=== PATIENT | female | born 1940 | race Caucasian/White ===

== ENCOUNTER 2025-04-03 09:46 | Emergency (ER) | payer MEDICARE, MEDICAID ==
[~2025-04-03] VITALS: Ht 152.4 cm; Wt 86.0 kg
[~2025-04-03 09:46] MED LIST: APIX5TAB3 PO; ATOR20TA PO; FURO-150 PO; METF-900 PO; METO-384 PO; OXYC-658 PO; SPIR25TA5 PO
--- NOTE | 2025-04-03 10:06 | ELECTROCARDIOGRAPH REPORT ---
[facility] Test Date: 2025-04-03 Test Time: 10:04:15 Pat Name: MARIUM FARRELL Department: [facility] Patient ID: [facility]-[id number] Room: Gender: F Customer Experience Consultant: WILLIAM : 1940 Requested By: CALDERON RYAN Order Number: [id number] Reading MD: Dr. Ramon Mcpherson Measurements Intervals [place] Rate: 98 P: 0 [place]: 0 QRS: 77 QRSD: 90 T: -33 QT: 364 QTc: 465 Interpretive Statements Atrial fibrillation Low voltage, precordial leads Borderline repolarization abnormality Electronically Signed On 04-03-2025 20:30:[address] Ramon Mcpherson Please click the below link to view image of tracing.
--- NOTE | 2025-04-03 10:23 | RADIOLOGY REPORT ---
EXAM: DI CHEST,SINGLE VIEW Indication: Hypotension Technique: Single frontal view of the chest was obtained Comparison: DI CHEST,SINGLE VIEW on DOS: 03/25/25, DI CHEST,SINGLE VIEW on DOS: 03/25/25 FINDINGS: Lines and Tubes: None Lungs: Right basilar opacity and trace bilateral pleural effusions. No pneumothorax. Cardiomediastinal contours: Unremarkable. Atherosclerotic vascular calcifications of the thoracic aorta are noted. Bones: No acute osseous abnormality. IMPRESSION: Right basilar opacity and trace bilateral pleural effusions.
[2025-04-03 10:32] LABS: CREATININE 1.28 MG/DL (0.40-0.90); TOTAL CARBON DIOXIDE 29.4 MMOL/L (24-32); eCRCL 24 ML/MIN; eGFR 40 ML/MIN
[2025-04-03 10:36] LABS: APTT 25 SECONDS (22-32); INR 1.1 INR
[2025-04-03 10:37] LABS: MEAN PLATELET VOLUME 7.0 FL (7.4-10.4); RED CELL DISTRIBUTION WIDTH 15.7 % (11.5-14.5)
[2025-04-03 11:30] LABS: LEUKOCYTE ESTERASE ,URINE SMALL (Neg); NITRITES, URINE NEGATIVE (Neg); OCCULT BLOOD,URINE LARGE (Neg)
[2025-04-03 11:50] LABS: UA COLLECTION TYPE CLN CATCH MIDSTREAM
[2025-04-03 11:51] LABS: SQUAMOUS EPITHELIAL CELL,UR FEW /LPF (FEW)
[2025-04-03 11:52] LABS: YEAST MODERATE /HPF (NEGATIVE)
--- NOTE | 2025-04-03 12:11 | Physician Documentation ---
History of Present Illness ~ Chief Complaint: Bloody Stools Stated Complaint: BLACK STOOLS Time Seen by MD: 09:52 OK to notify your PCP?: Yes Mode of Arrival: EMS HPI 85-year-old female patient with a history of BRADLY, anemia, gout, diabetes, history of duodenitis and the patient is DNR with selective care was brought to the emergency room from [place] for subacute for "black tarry stool" for two days. According to the patient she does not notice any thing and she notes aware of that. Medication Reconciliation Allergies: Coded Allergies: No Known Allergies (Unverified , 03/25/25) Scheduled Apixaban (Eliquis), 1 TAB PO Q12H, (Reported) Atorvastatin Calcium* (Lipitor*), 1 TAB PO DAILY, (Reported) Furosemide* (Lasix*), 2 TAB PO BID, (Reported) Metformin Hcl* (Metformin ER*), 2 TAB PO Q12H, (Reported) Metoprolol Succinate (Metoprolol Succinate), 1 TAB PO DAILY, (Reported) Spironolactone (Spironolactone), 1 TAB PO DAILY, (Reported) Scheduled PRN Oxycodone Hcl IR* (Oxycodone IR*), 1 TAB PO Q6H PRN for moderate to severe pain, (Reported) Past Medical History Patient History: Patient reports no known family medical history. Alcohol Use: None Drug Use: none Lives with: Alone Lives In: Home Occupation: retired Review of Systems ROS As stated above in the HPI, otherwise all systems are reviewed and negative. Physical Exam Vital Signs: Source: Oral, Heart Rate: 97, Respiratory Rate: 15, BP: 144/76, Pulse Oximetry: 98, Weight: 86.000 Oxygen Flow Rate: 2.0 Physical Exam Reviewed vital signs and they are well within normal range. Const: Patient is not in acute cardiopulmonary distress Head: Atraumatic Eyes: Normal Conjunctiva ENT: Normal External Ears, Nose and Mouth. Moist mucous membranes Neck: Full range of motion. No meningismus Resp: Clear to auscultation bilaterally. Normal work of breathing Cardio: Rhythm is AFib, no murmurs. Skin well perfused, heart rate 96 Abd: Soft, non-tender, non-distended. Normal bowel sounds. No rebound or guarding Rectal examination does not reveal any black tarry stool and is occult negative. Skin: No petechiae or rashes. Warm and dry Back: No midline or flank tenderness Ext: No cyanosis, or edema Neuro: Awake and alert Psych: Normal Mood and Affect Progress Results/Orders Results/Orders Orders - CALDERON RYAN MD Chest,Single View (04/03/25 09:50) Nothing By Mouth (04/03/25 Lunch) Monitor (04/03/25 09:52) Saline Lock (04/03/25 09:52) Electrocardiogram (04/03/25 09:52) Occult Bld Stool (04/03/25 11:10) Cult Urine + [address] (04/03/25 11:52) Completed Orders - CALDERON RYAN MD Cbc/Diff (04/03/25 09:52) BMP (04/03/25 09:52) PTT (04/03/25 09:52) Pt Inr (04/03/25 09:52) Type And Screen (04/03/25 09:52) Chest,Single View (04/03/25 09:50) Electrocardiogram (04/03/25 09:52) Ua W/Microscopic, Cult If Ind (04/03/25 11:03) Vital Signs 04/03/25 04/03/25 04/03/25 09:48 09:53 11:14 Pulse 88 97 Resp 16 16 15 B/P (MAP) 154/64 144/76 (98) Pulse Ox 98 98 O2 Flow Rate 2.0 2.0 Laboratory Tests Test 04/03/25 10:06 04/03/25 10:08 04/03/25 10:27 04/03/25 11:03 Prothrombin Time 11.5 INR International Normalized Ratio 1.1 Activated Partial Thromboplast Time 25 Coagulation Comments Sodium Level 142 Potassium Level 3.4 L Chloride Level 105 Carbon Dioxide Level 29.4 Anion Gap 8 Blood Urea Nitrogen 16 Creatinine 1.28 H Estimated GFR/1.73 m2 40 BUN/Creatinine Ratio 12.5 Glucose Level 113 H Calcium Level 9.9 Albumin 2.5 L Chemistry Comments White Blood Count 11.0 Red Blood Count 3.25 L Hemoglobin 10.0 L Hematocrit 29.5 L Mean Corpuscular Volume 90.8 Mean Corpuscular Hemoglobin 30.9 Mean Corpuscular Hemoglobin Concent 34.0 Red Cell Distribution Width 15.7 H Platelet Count 249 Mean Platelet Volume 7.0 L Neutrophils (%) (Auto) 85.0 H Lymphocytes (%) (Auto) 5.8 L Monocytes (%) (Auto) 7.3 Eosinophils (%) (Auto) 1.6 Basophils (%) (Auto) 0.3 Neutrophils # (Auto) 9.3 H Lymphocytes # (Auto) 0.6 L Monocytes # (Auto) 0.8 Eosinophils # (Auto) 0.2 Basophils # (Auto) 0.0 CBC Comment Urine Specimen Description Cln catch midstream Urine Color Yellow Urine Clarity Slightly cloudy Urine pH 7.5 Urine Specific Sullivan 1.010 Urine Protein 30 H Urine Glucose (UA) 500 H Urine Ketones 15 H Urine Occult Blood Large H Urine Nitrite Negative Urine Bilirubin Small Urine Urobilinogen 0.2 Urine Leukocyte Esterase Small H Urine RBC 10-20 Urine WBC 30-50 H Urine Squamous Epithelial Cells Few Urine Bacteria None seen Urine Yeast Moderate Urine Culture Indicated Indicated Volume Urine Centrifuged 10 ml Urine Comment Test 04/03/25 11:10 Medical Decision Making Findings ER Course/Med. Decision Making REVIEW of RECORD(S): Previous medical records here and/or external medical records, such as that provided directly by the patient, by EMS and/or outside medical facilities, if available, were reviewed. COMORBIDITIES on blood thinner and elderly and history of anemia MDM During the physical examination, the findings suggestive of acute life- threatening condition such as JVD, tracheal deviation, acidotic breathing, noisy stridorous breath sounds, pulses paradoxus, muffled heart sounds, unequal breath sounds, abdominal rigidity and rebound tenderness, focal neurological deficits, cool clammy skin, severe hypotension, severe tachycardia or bradycardia are absent. Patient presenting for" black tarry stool two days" . Vital signs reviewed. Patient is hemodynamically stable and does not meet SIRS criteria. Patient appears nontoxic on exam. CBC hemoglobin is 10 which is the highest in the record. CMP is also within normal range. I have my nurse called the [facility] acute and to verify who saw the black tarry stool and then nobody is able to say anything to confirmed that. Therefore I will send the patient back . TREATMENT/DISPOSITION: The patient's presentation is most consistent with MSE Prior to discharge I independently reviewed the patients past medical history, clinical risk factors, comorbidities, and social determinants of health and diagnostic studies. The patient appears to be a safe discharge home with close outpatient PCP follow-up I had extensive discussion with patient regarding management, disposition and follow up. Potential symptom etiology was discussed, and shared decision making occurred. They will return immediately if symptoms worsen, do not improve, or they have any further concerns. Prior to discharge all questions were addressed. The patient is aware that the purpose of this visit was to screen for an acute medical emergency requiring emergent stabilization. Chronic and occult conditions, including malignancies, have not been ruled out. If patient is unable to arrange follow-up as stated in the discharge instructions and further discussed with the patient directly, or their symptoms worsen/become more concerning, they are to return to the ER for reassessment immediately. Prior to leaving the department, the patient has a plan for discharge, has decision making capacity, and acknowledges an understanding of the verbal and written discharge instructions. SOCIAL DETERMINANTS: Patient demonstrates no obvious challenges to following up as an outpatient although did consider whether patient had any barriers to access care including homelessness, Food insecurity, Mental health, Substance abuse, Disabilities, Limited access to medical care, Difficulty finding transport, Insurance issues, Refusal of care or testing due to cost concerns. MEDICAL SCREENING: I have discussed with the patient the non-definitive nature of the emergency screening exam, diagnosis and the possibility of a variety of conditions which may present in atypically benign fashion and stressed the importance of close follow-up for definitive diagnosis and treatment. We discussed signs and symptoms that should be watched for which might indicate a more serious or new condition that would benefit from emergency reevaluation and the patient has verbalized understanding to this and my other detailed discharge instructions and promises compliance. I have referred him back to his primary physician of course for a more detailed evaluation and more definitive diagnoses. DISCLAIMER: Inadvertent spelling and grammatical errors are likely due to EMR/dictation software use and do not reflect on the overall quality of patient care. Note that the electronic time recorded on this note does not necessarily reflect the actual time of the patient encounter. Departure Disposition: 01 HOME / SELF CARE / HOMELESS Impression: Primary Impression: Encounter for medical screening examination Condition: Stable Additional Instructions: Thank you for coming to our Emergency Department today. Please ask your nurse or provider if you have questions about your care today and do not leave until all your questions have been answered. Please use any medications given as directed and follow-up with your doctor (or the doctor you were referred to) in the next 1-3 days. Your primary care doctor can help to coordinate outpatient specialty care and provide authorization for specialty referral as needed. If you do not have a primary care doctor you may follow [facility] at a [facility]. You may also use motrin and tylenol as needed for fever and/or pain unless instructed otherwise by your provider or nurse. Indications for more urgent follow-up have been discussed, but you may return to the Emergency Department at ANY time for any worrisome or worsening symptoms. County Facilities: [facility] Facilities: [facility]: [facility] [place] Address:[address] [place] [address] [facility]: [place] Address:[address] [place] [id number] [facility]: [facility] Address:[address] [place] [address] [facility] Address:[address] [place] [address] Registration Billing Pharmacy Referrals [facility] Address:[address] [place] [address] Referrals: NO PRIMARY CARE PROVIDER (PCP) Education Educated: Patient Educated regarding: diagnosis, treatment, prognosis, need for follow up Signature Scribe Signature: X Attestation: CALDERON DOSS MD Apr 03, 2025 12:11
[2025-04-03 12:34] LABS: OCCULT BLOOD STOOL NEGATIVE (Neg)
[2025-04-03 13:44] VITALS: BP 144/76; PULSE 92; RESP 18; O2SAT 98
== END 2025-04-03 13:46 | disposition home or self-care (01) ==
LOC: ER 09:46
DX: Z00.00 Encounter for general adult medical examination without abnormal findings (principal); E11.9 Type 2 diabetes mellitus without complications; I48.91 Unspecified atrial fibrillation; Z87.19 Personal history of other diseases of the digestive system; Z79.899 Other long term (current) drug therapy; Z60.2 Problems related to living alone
CPT/HCPCS: 36415; 71045; 80048; 81001; 82272; 85025; 85610; 85730; 86885; 86900; 86901; 87088; 93005; 99285; C1758

== ENCOUNTER 2025-04-13 16:14 | Emergency (ER) | payer MEDICARE, MEDICAID ==
[~2025-04-13] VITALS: Ht 152.4 cm; Wt 73.0 kg
--- NOTE | 2025-04-13 17:24 | Physician Documentation ---
History of Present Illness ~ Chief Complaint: Bloody Stools Stated Complaint: ABNORMAL LABS Time Seen by MD: 17:02 HPI Patient presents to the emergency room [facility] for fecal occult blood. Patient denies any weakness or melena. Patient denies any pain in his far she is concerned she has no complaints and we would like to go home. Medication Reconciliation Allergies: Coded Allergies: No Known Allergies (Unverified , 04/13/25) Scheduled Apixaban (Eliquis), 1 TAB PO Q12H, (Reported) Atorvastatin Calcium* (Lipitor*), 1 TAB PO DAILY, (Reported) Furosemide* (Lasix*), 2 TAB PO BID, (Reported) Metformin Hcl* (Metformin ER*), 2 TAB PO Q12H, (Reported) Metoprolol Succinate (Metoprolol Succinate), 1 TAB PO DAILY, (Reported) Spironolactone (Spironolactone), 1 TAB PO DAILY, (Reported) Scheduled PRN Oxycodone Hcl IR* (Oxycodone IR*), 1 TAB PO Q6H PRN for moderate to severe pain, (Reported) Past Medical History Patient History: Patient reports no known family medical history. Alcohol Use: None Drug Use: none Lives with: Alone Lives In: Home Occupation: retired Review of Systems ROS All review of systems negative except as per HPI Physical Exam Vital Signs: Temperature: 98.0, Source: Oral, Heart Rate: 91, Respiratory Rate: 16, BP: 112/61, Pulse Oximetry: 99, Weight: 73.000 Oxygen Flow Rate: 0 Physical Exam General: Patient is awake, alert, cooperative and pleasant Head: Normocephalic and atraumatic. Eyes: Conjunctival normal. EOMI. PERRL. ENT: Mucous membranes moist. Neck: Supple, trachea is midline. Chest: Clear to auscultation bilaterally without rales, rhonchi, or wheezes. There is no accessory muscle use or retractions. Cardiac: RRR without murmurs, gallops, or rubs. Abd: Soft, nondistended, nontender, with normoactive bowel sounds. No guarding, rebound, or rigidity. : Good rectal tone, brown stools, guaiac negative Progress Results/Orders Results/Orders Orders - JAMIL PASCAL MD Cbc/Diff (04/13/25 17:22) Nothing By Mouth (04/14/25 Breakfast) Monitor (04/13/25 17:22) Saline Lock (04/13/25 17:22) Man Diff (04/13/25 17:50) Completed Orders - JAMIL PASCAL MD BMP (04/13/25 17:22) PTT (04/13/25 17:22) Pt Inr (04/13/25 17:22) Type And Screen (04/13/25 17:22) Potassium Cl Sr Tablet (K-Dur Tablet) (04/13/25 18:33) Vital Signs 04/13/25 04/13/25 04/13/25 16:20 17:45 17:47 Temp 98.0 Pulse 91 88 Resp 16 16 16 B/P (MAP) 112/61 109/49 (69) Pulse Ox 99 100 O2 Flow Rate 0 Laboratory Tests Test 04/13/25 17:50 White Blood Count 6.0 Red Blood Count 3.61 L Hemoglobin 11.1 L Hematocrit 32.7 L Mean Corpuscular Volume 90.7 Mean Corpuscular Hemoglobin 30.7 Mean Corpuscular Hemoglobin Concent 33.9 Red Cell Distribution Width 15.4 H Platelet Count 279 Mean Platelet Volume 8.7 Neutrophils (%) (Auto) 71.7 Lymphocytes (%) (Auto) 10.4 L Monocytes (%) (Auto) 16.2 H Eosinophils (%) (Auto) 1.2 Basophils (%) (Auto) 0.5 Neutrophils # (Auto) 4.3 Lymphocytes # (Auto) 0.6 L Monocytes # (Auto) 1.0 H Eosinophils # (Auto) 0.1 Basophils # (Auto) 0.0 CBC Comment Basophilic Stippling Prothrombin Time 11.8 INR International Normalized Ratio 1.2 Activated Partial Thromboplast Time 30 Coagulation Comments Sodium Level 141 Potassium Level 2.8 *L Chloride Level 98 L Carbon Dioxide Level 37.8 H Anion Gap 5 L Blood Urea Nitrogen 17 Creatinine 1.35 H Estimated GFR/1.73 m2 37 BUN/Creatinine Ratio 12.6 Glucose Level 148 H Calcium Level 10.4 H Albumin 2.6 L Chemistry Comments Medical Decision Making Additional info obtained from: old records Findings Patient presents to the emergency room with report of guaiac-positive stool. Guaiac is negative here and labs are reassuring. No elevation of BUN to suggest upper GI bleed. Hemoglobin that has reassuring compared to previous. Diff Dx GI Bleed:Consideration: Include: AE fistula, Angiodysplasia, Bleeding diathesis, Blood loss anemia, Carcinoma, Diverticulosis, Diverticulitis, Esophageal varicies, Esophagitis, Gastritis, Gastroenteritis, Inflammatory BD, Yazmin-Ridley syndrome, Meckel's diverticulum, PUD, Other Departure Disposition: HOME / SELF CARE / HOMELESS Impression: Primary Impression: Hypokalemia Condition: Stable Discharge Instructions: Hypokalemia Additional Instructions: Hemoglobin was reassuring compared to previous earlier this month. No elevation of BUN to suggest upper GI bleed. Guaiac was negative at our facility. Referrals: NO PRIMARY CARE PROVIDER (PCP) Prescriptions Potassium Chloride* (K-Dur*) 20 Meq Tab.prt.sr 1 TAB PO Q12H, #6 TAB Prov: JAMIL PASCAL MD 04/13/25 Signature Scribe Signature: No scribe Attestation: The note accurately reflects work and decisions made by me.Jamil Pascal MD 04/13/25 18:44 JAMIL PASCAL MD Apr 13, 2025 17:24
[2025-04-13 18:02] LABS: MEAN PLATELET VOLUME 8.7 FL (7.4-10.4); RED CELL DISTRIBUTION WIDTH 15.4 % (11.5-14.5)
[2025-04-13 18:11] LABS: APTT 30 SECONDS (22-32); INR 1.2 INR
[2025-04-13 18:20] LABS: CREATININE 1.35 MG/DL (0.40-0.90); TOTAL CARBON DIOXIDE 37.8 MMOL/L (24-32); eCRCL 22 ML/MIN; eGFR 37 ML/MIN
[2025-04-13] MEDS ORDERED: potassium Cl 20 mEq SR tablet PO STA (18:33)
[2025-04-13] MEDS ORDERED: POTA-207 PO (18:42)
[2025-04-13 18:45] VITALS: BP 129/72; PULSE 105; RESP 16; TEMP 98; O2SAT 99
[2025-04-13] MEDS: POTASSIUM CHLORIDE 20 MEQ/15 ML oral solution PO STA (18:58)
[2025-04-13 18:59] LABS: EOSINOPHILS % (MANUAL) 1.0 % (0-6); LYMPHOCYTES % (MANUAL) 8.0 % (21-51); MONOCYTES % (MANUAL) 15.0 % (2-12); NEUTROPHILS % (MANUAL) 76.0 % (42-75)
[2025-04-13 19:00] LABS: PLATELET ESTIMATE NORMAL
[2025-04-13 19:45] LABS: OCCULT BLOOD STOOL NEGATIVE (Neg)
== END 2025-04-13 20:11 | disposition home or self-care (01) ==
LOC: ER 16:15
DX: E87.6 Hypokalemia (principal); Z79.82 Long term (current) use of aspirin; Z79.84 Long term (current) use of oral hypoglycemic drugs
CPT/HCPCS: 36415; 80048; 82272; 85007; 85025; 85610; 85730; 86885; 86900; 86901; 99283